=== PATIENT | male | born 1995 | race African-American/Black ===

== ENCOUNTER 2017-07-15 20:34 | Emergency (ER) | payer BC ==
--- NOTE | 2017-07-15 20:45 | EDM.PDOC ---
ED HPI GENERAL MEDICAL PROBLEM - General Chief Complaint: Headache Stated Complaint: HEADACHE FEVER Time Seen by Provider: 07/15/17 20:45 - History of Present Illness INITIAL COMMENTS - FREE TEXT/NARRATIVE: 22-year-old male presents emergency room with a three-day history of aches pains fevers and headache. This started Saturday night or Saturday morning. Patient has not tried anything for this he complains that the congestion and headache keep him up at night. He' s felt warm but has not checked any temperatures. He has not tried any home remedies or [id number] medication. He has not any nausea vomiting no breathing difficulties or shortness of breath. Past medical history the patient does not drink or smoke does not use drugs area Past medical history unremarkable other than hernia repair he's not on any routine medications allergies: None Headache Pain Score (Numeric/FACES): 6 - Related Data Allergies Allergy/AdvReac Type Severity Reaction Status Date / Time No Known Allergies Allergy Verified 07/15/17 20:50 Home Meds: Home Meds . [No Known Home Meds] 07/15/17 [History] ED ROS GENERAL - Review of Systems Review Of Systems: See Below Constitutional: Reports: Fever (Subjective), Chills HEENT: Reports: Rhinitis. Denies: Ear Pain, Sinus Problem Respiratory: Reports: No Symptoms. Denies: Cough Cardiovascular: Reports: No Symptoms Endocrine: Reports: No Symptoms GI/Abdominal: Reports: No Symptoms : Reports: No Symptoms Musculoskeletal: Reports: Muscle Pain. Denies: Joint Pain, Joint Swelling Skin: Reports: No Symptoms Neurological: Reports: Headache (Mild). Denies: Confusion, Dizziness ED EXAM, GENERAL - Physical Exam Exam: See Below Exam Limited By: No Limitations General Appearance: Alert, No Apparent Distress Eye Exam: Bilateral Eye: Normal Inspection, PERRL Ears: Normal External Exam, Normal Canal, Hearing Grossly Normal, Normal TMs Nose: Normal Inspection, Normal Mucosa, No Blood, Clear Rhinorrhea Throat/Mouth: Normal Inspection, Normal Lips, Normal Teeth, Normal Gums, Normal Oropharynx, Normal Voice, No Airway Compromise Head: Atraumatic, Normocephalic Neck: Normal Inspection, Supple, Non-Tender, Full Range of Motion, Other (No nuchal rigidity the patient can fully flex his neck down with his legs hips fully flexed and his lower legs fully extended). No: Limited Range of Motion, Tender Midline Respiratory/Chest: No Respiratory Distress, Lungs Clear, Normal Breath Sounds Cardiovascular: Regular Rate, Rhythm, No Edema, No Murmur GI/Abdominal: Normal Bowel Sounds, Soft, Non-Tender Course - Vital Signs Last Recorded V/S: Last Vital Signs Temp 36.2 C 07/15/17 20:48 Pulse 88 07/15/17 20:48 Resp 18 07/15/17 20:48 BP 137/85 07/15/17 20:48 Pulse Ox 100 07/15/17 20:48 - Orders/Labs/Meds Orders: Active Orders 24 hr Category Date Time Status INFLUENZA A+B AG SCREEN [RM] Stat Lab 07/15/17 20:42 Received Departure - Departure Time of Disposition: 21:02 Disposition: Home, Self-Care 01 Clinical Impression: Viral illness, Influenza - Discharge Information Referrals: PCP,None [Primary Care Provider] - Forms: ED Department Discharge Additional Instructions: Return to emergency room if any questions problems worsening symptoms. Push lots of fluids. Use ibuprofen up to 800 mg, this will be for of the 200 mg tablets, 3 times daily this is [id number] start it tonight. If you're not doing better in 2 days follow-up in the Hospital clinic [phone]. - My Orders Last 24 Hours: My Active Orders 07/15/17 20:42 INFLUENZA A+B AG SCREEN [RM] Stat - Assessment/Plan Last 24 Hours: My Active Orders 07/15/17 20:42 INFLUENZA A+B AG SCREEN [RM] Stat
== END 2017-07-15 21:11 | disposition home or self-care (01) ==
LOC: JD.ED 20:34
DX: J11.1 Influenza due to unidentified influenza virus with other respiratory manifestations (principal); B34.9 Viral infection, unspecified
CPT/HCPCS: 87804; 99284

== ENCOUNTER 2018-03-01 15:04 | Emergency (ER) | payer OTHER, BC ==
[2018-03-01] MEDS ORDERED: Sodium Chloride 0.9% 10 ML Syringe FLUSH PRN (15:47)
[2018-03-01] MEDS ORDERED: Sodium Chloride 0.9% 1,000 ML IV ONE (15:47)
--- NOTE | 2018-03-01 15:54 | EDM.PDOC ---
ED HPI GENERAL MEDICAL PROBLEM - General Chief Complaint: Upper Extremity Injury/Pain Stated Complaint: RT HAND INJURY Time Seen by Provider: 03/01/18 15:30 Source of Information: Reports: Patient History Limitations: Reports: No Limitations - History of Present Illness INITIAL COMMENTS - FREE TEXT/NARRATIVE: Patient is a 22-year-old male who presents ED complaining of swelling and pain to the right thumb. Patient was at work standing on a metal ladder using a industrial vacuum while working at [employer] today and was shocked. Patient was only a few rungs of the ladder and fell landing on his right hand and side. There was no loss consciousness. His only complaint is the swollen right thumb. Otherwise denies any head neck or back pain, numbness and tingling to extremities, chest pain, shortness of breath, palpitations, abdominal pain, irregular heartbeat, nausea or vomiting, or any additional complains. Right Hand Pain Score (Numeric/FACES): 10 - Related Data Allergies Allergy/AdvReac Type Severity Reaction Status Date / Time No Known Allergies Allergy Verified 07/15/17 20:50 Home Meds: Home Meds . [No Known Home Meds] 07/15/17 [History] Past Medical History - Past Health History Medical/Surgical History: Denies Medical/Surgical History Social & Family History - Tobacco Use Smoking Status *Q: Never Smoker - Caffeine Use Caffeine Use: Reports: Coffee, Energy Drinks, Soda, Tea - Recreational Drug Use Recreational Drug Use: No Review of Systems - Review of Systems Review Of Systems: See Below Respiratory: Reports: No Symptoms Cardiovascular: Reports: No Symptoms GI/Abdominal: Reports: No Symptoms Musculoskeletal: Reports: Hand Pain (Right thumb with swelling) Skin: Reports: No Symptoms Neurological: Reports: No Symptoms ED EXAM, GENERAL - Physical Exam Exam: See Below Exam Limited By: No Limitations General Appearance: Alert, WD/WN, No Apparent Distress Ears: Hearing Grossly Normal Nose: Normal Inspection Throat/Mouth: Normal Voice, No Airway Compromise Head: Atraumatic, Normocephalic Neck: Normal Inspection, Supple, Non-Tender, Full Range of Motion Respiratory/Chest: No Respiratory Distress, Lungs Clear, Normal Breath Sounds, No Accessory Muscle Use Cardiovascular: Normal Peripheral Pulses, Regular Rate, Rhythm, No Murmur Peripheral Pulses: 2+: Radial (R) Extremities: Other (Swelling noted to the base of the right thumb with increase pain with palpation. Decreased range of motion noted. No sensory deficits distally. No pain noted with palpation of the remaining parts of the hand and fingers. No pain to the wrist, forearm, elbow, upper arm. Patient has full range of motion of the wrist. No pain to the anatomical snuff box. ) Neurological: Alert, Oriented, CN II-XII Intact, Normal Cognition, No Motor/ Sensory Deficits Psychiatric: Normal Affect, Normal Mood Skin Exam: Warm, Dry, Intact, Normal Color Course - Vital Signs Last Recorded V/S: Last Vital Signs Temp 98.6 F 03/01/18 15:22 Pulse 73 03/01/18 15:22 Resp 20 03/01/18 15:22 BP 139/82 03/01/18 15:22 Pulse Ox 99 03/01/18 15:22 - Orders/Labs/Meds Orders: Active Orders 24 hr Category Date Time Status EKG Documentation Completion [RC] STAT Care 03/01/18 15:47 Active Peripheral IV Care [RC] . DIRECTED Care 03/01/18 15:47 Active Telemetry Monitoring [Cardiac Monitoring] [RC] . Care 03/01/18 15:47 Active DIRECTED Fingers Thumb Rt F5 [CR] Stat Exams 03/01/18 15:48 Taken Peripheral IV Insertion Adult [OM.PC] Routine Oth 03/01/18 15:47 Ordered Labs: Laboratory Tests 03/01/18 03/01/18 03/01/18 Range/Units 16:10 16:15 16:15 WBC 5.77 (4.23-9.07) K/mm3 RBC 5.35 (4.63-6.08) M/mm3 Hgb 15.7 (13.7-17.5) gm/L Hct 45.7 (40.1-51.0) % MCV 85.4 (79.0-92.2) fl MCH 29.3 (25.7-32.2) pg MCHC 34.4 (32.2-35.5) g/dl RDW Std Deviation 37.9 (35.1-43.9) fL Plt Count 146 L (163-337) K/mm3 MPV 12.2 (9.4-12.3) fl Neutrophils % (Manual) 42 (40-60) % Band Neutrophils % 0 (0-10) % Lymphocytes % (Manual) 48 H (20-40) % Atypical Lymphs % 0 % Monocytes % (Manual) 4 (2-10) % Eosinophils % (Manual) 6 (0.8-7.0) % Basophils % (Manual) 0 L (0.2-1.2) Platelet Estimate Adequate Plt Morphology Comment Normal RBC Morph Comment Normal Sodium 139 (136-145) mEq/L Potassium 4.5 (3.5-5.1) mEq/L Chloride 104 (98-107) mEq/L Carbon Dioxide 29 (21-32) mEq/L Anion Gap 10.5 (5-15) BUN 16 (7-18) mg/dL Creatinine 1.2 (0.7-1.3) mg/dL Est Cr Clr Drug Dosing 85.66 mL/min Estimated GFR (MDRD) > 60 (>60) mL/min BUN/Creatinine Ratio 13.3 L (14-18) Glucose 89 (74-106) mg/dL Calcium 9.4 (8.5-10.1) mg/dL Total Bilirubin 0.5 (0.2-1.0) mg/dL AST 30 (15-37) U/L ALT 34 (16-63) U/L Alkaline Phosphatase 71 (46-116) U/L Creatine Kinase 367 H (39-308) U/L Total Protein 8.4 H (6.4-8.2) g/dl Albumin 4.1 (3.4-5.0) g/dl Globulin 4.3 gm/dL Albumin/Globulin Ratio 1.0 (1-2) Urine Color Yellow (Yellow) Urine Appearance Clear (Clear) Urine pH 6.0 (5.0-8.0) Ur Specific [place] > or = 1.030 (1.005-1.030) Urine Protein Negative (Negative) Urine Glucose (UA) Negative (Negative) Urine Ketones Negative (Negative) Urine Occult Blood Negative (Negative) Urine Nitrite Negative (Negative) Urine Bilirubin Negative (Negative) Urine Urobilinogen 0.2 (0.2-1.0) Ur Leukocyte Esterase Negative (Negative) Urine RBC Not seen (0-5) /hpf Urine WBC 0-5 (0-5) /hpf Ur Epithelial Cells 0-5 (0-5) /hpf Urine Bacteria Not seen (FEW) /hpf Urine Mucus Not seen (FEW) /hpf Meds: Medications Discontinued Medications Generic Name Dose Route Start Last Admin Trade Name Juanitoq PRN Reason Stop Dose Admin Sodium Chloride 1,000 mls @ 500 mls/hr 03/01/18 15:47 03/01/18 16:19 Normal Saline IV 03/01/18 17:46 500 mls/hr ONETIME ONE Administration Sodium Chloride 10 ml 03/01/18 15:47 03/01/18 16:19 Saline Flush FLUSH 10 ml ASDIRECTED PRN Administration Keep Vein Open - Re-Assessments/Exams Free Text/Narrative Re-Assessment/Exam: Patient was utilizing a 220 volt vacuum cleaner housekeeping while standing on a metal ladder per coworker present. Patient was only a few rungs up on the ladder when he was shocked. Patient fell off the ladder and landed on his right arm. Pain is isolated to the right thumb with swelling noted. Patient was holding onto the vacuum with right hand. IV established with NS 500 mL per hour. Initial labs and studies include: CBC, chem 14, CPK, UA, EKG, and x-ray of the right thumb. EKG sinus rhythm at a rate of 70. Early repolarization pattern. Labs reviewed: CBC essentially normal. Chemistry panel was essentially normal as well. CK 367 which is mildly elevated. UA negative for blood or proteins. Patient has been here almost 4 hours. I did review all telemetry readings with no arrhythmias noted. Will have splint applied to the left thumb. He will follow up with occupational medicine provider this coming week for reevaluation. Discharge instructions as documented.The patient remained hemodynamically stable while under my care in the E.D. I discussed the concerning symptoms for which to return to the E.D. with the patient. The patient verbalized understanding. All questions were answered. Departure - Departure Time of Disposition: 19:08 Disposition: Home, Self-Care 01 Condition: Good Clinical Impression: Sprain of hand, thumb, right Qualifiers: Encounter type: initial encounter Sprain of finger site: unspecified site Qualified Code(s): S63.601A - Unspecified sprain of right thumb, initial encounter Contusion of right thumb Qualifiers: Encounter type: initial encounter Damage to nail status: without damage Qualified Code(s): S60.011A - Contusion of right thumb without damage to nail, initial encounter Electrical shock of hand Qualifiers: Encounter type: initial encounter Qualified Code(s): T75.4XXA - Electrocution, initial encounter - Discharge Information Instructions: Cast or Splint Care, Adult, [id number], Contusion, Finger Sprain, Adult, [id number], Electric Shock Injury Referrals: PCP,None [Primary Care Provider] - Forms: ED Department Discharge, ED Return to Work/School Form Additional Instructions: X-ray of the right thumb did not reveal any acute bony abnormalities. Suspect you have a contusion and/or sprain to the right thumb. Wear the splint as directed until pain dissipates. Refrain from any activities that cause worsening pain. Apply ice to affected area 3 times a day, 30 minutes in duration , do not apply ice directly on the skin. Take ibuprofen and/or Tylenol and alternate fashion. If pain persists he occupational med talk for re-x-ray of the right thumb. In addition your shocked at 220 V. Please monitor for dizziness , chest pain, shortness of breath, irregular heartbeats, and or change in color of urine. Push the fluids. Please follow up with occupational med provider this coming week for reevaluation. Return to the ED if you develop any new or worsening symptoms. - My Orders Last 24 Hours: My Active Orders 03/01/18 15:47 EKG Documentation Completion [RC] STAT Peripheral IV Care [RC] . DIRECTED Telemetry Monitoring [Cardiac Monitoring] [RC] . DIRECTED Peripheral IV Insertion Adult [OM.PC] Routine 03/01/18 15:48 Fingers Thumb Rt F5 [CR] Stat - Assessment/Plan Last 24 Hours: My Active Orders 03/01/18 15:47 EKG Documentation Completion [RC] STAT Peripheral IV Care [RC] . DIRECTED Telemetry Monitoring [Cardiac Monitoring] [RC] . DIRECTED Peripheral IV Insertion Adult [OM.PC] Routine 03/01/18 15:48 Fingers Thumb Rt F5 [CR] Stat
--- NOTE | 2018-03-03 07:14 | CR ---
Right thumb: Three views centered to the right thumb were obtained. Comparison: No prior right thumb exam. Joint spaces are maintained. No fracture, dislocation or other bony abnormality is seen. Impression: 1. No abnormality is identified on right thumb study. Diagnostic code #1
== END 2018-03-01 19:33 | disposition home or self-care (01) ==
LOC: JD.ED 15:04
DX: S63.601A Unspecified sprain of right thumb, initial encounter (principal); T75.4XXA Electrocution, initial encounter; W11.XXXA Fall on and from ladder, initial encounter; Y99.0 Civilian activity done for income or pay
CPT/HCPCS: 36415; 73140; 80053; 81001; 82550; 85007; 85027; 93005; 96360; 96361; 99284; J7040; J7050

== ENCOUNTER 2021-08-26 12:53 | Emergency (ER) | payer OTHER, BC ==
[2021-08-26] MEDS ORDERED: Diphtheria,Pertussis(Acell),Tetanus Vaccine 0.5 ML Syringe IM ONE ×2 (13:10→13:25)
== END 2021-08-26 14:00 | disposition home or self-care (01) ==
LOC: JD.ED 12:53
DX: S60.221A Contusion of right hand, initial encounter (principal); Z23 Encounter for immunization; W20.8XXA Other cause of strike by thrown, projected or falling object, initial encounter
CPT/HCPCS: 73130-26-RT; 73130-RT; 90471; 90715; 99283-25

== ENCOUNTER 2021-12-30 16:49 | Emergency (ER) | payer OTHER, BC ==
[2021-12-30] MEDS ORDERED: Fluorescein 1 MG Ophth Strip EYEBOTH ONE (17:56)
[2021-12-30] MEDS ORDERED: Proparacaine 0.5% Ophth Soln 15 ML Bottle EYEBOTH ONE (17:56)
[2021-12-30] MEDS ORDERED: Erythromycin Base 0.5% Ophth Oint 1 GM Tube EYEBOTH ONE (18:21)
== END 2021-12-30 18:44 | disposition home or self-care (01) ==
LOC: JD.ED 16:49
DX: S05.01XA Injury of conjunctiva and corneal abrasion without foreign body, right eye, initial encounter (principal); S05.02XA Injury of conjunctiva and corneal abrasion without foreign body, left eye, initial encounter; X58.XXXA Exposure to other specified factors, initial encounter
CPT/HCPCS: 99283; A9270; 99282